=== PATIENT | female | born 1975 | race Caucasian/White ===

== ENCOUNTER 2022-12-14 11:47 | Outpatient (REF) | payer MEDICAID, SELFPAY ==
[2022-12-14 19:02] LABS: ESR 20 mm/hr (0-20); HCT 41.1 % (36.0-46.0); HGB 13.2 g/dL (11.2-15.7); MCH 28.4 pg (27.0-33.0); MCHC 32.1 % (32.0-36.0); MCV 88 fL (80-95); MPV 9.1 fL (8.0-11.0); Platelet Count 445 10^3/uL (130-400); RBC 4.65 10^6/uL (3.93-5.22); RDW 12.5 % (11.7-14.6); RDW-SD 40.3 fL; WBC 5.67 10^3/uL (4.4-10.8)
[2022-12-14 19:12] LABS: ALT 24 U/L (14-59); AST 26 U/L (15-37); Albumin 4.2 g/dL (3.4-5.0); Alkaline Phosphatase 77 U/L (46-116); Anion Gap 2.4 mmol/L (3-11); BUN 10 mg/dL (7-18); Bilirubin, Total 0.5 mg/dL (0.2-1.0); C-Reactive Protein < 0.05 mg/dL (0.0-0.3); CO2 31.6 mmol/L (21.0-32.0); CREATININE 0.8 mg/dL (0.55-1.02); Calcium 9.4 mg/dL (8.5-10.1); Chloride 99 mmol/L (98-107); Estimated GFR 90.27 (mL/min/1.73m2); Glucose 101 mg/dL (74-106); Sodium 133 mmol/L (136-145); Total Protein 7.9 g/dL (6.4-8.2)
== END 2022-12-14 11:48 | disposition home or self-care (01) ==
LOC: NCHCN 11:47
PROVIDERS: PCP Family Medicine; Visit Provider Internal Medicine
DX: M79.18 Myalgia, other site (principal); E03.9 Hypothyroidism, unspecified; G03.8 Meningitis due to other specified causes
CPT/HCPCS: 80053; 85027; 85652; 86140

== ENCOUNTER 2023-06-11 09:04 | Outpatient (REF) | payer MEDICAID, SELFPAY ==
--- NOTE | 2023-06-11 08:30 | PAPFT_PTH ---
PATIENT: Jaycee Rodarte LOC: [facility] U#:[id number] AGE/SX: 48/F ROOM: RE06/11/[address]: Teresa Johnson NP : 1975 BED: DIS: 06/11/2023 SPEC #: [id number] RECD: 06/11/23 12:50 STATUS: TIFFANY REChristine #: [id number] IVAN: 06/11/23 08:[address]: Elizabeth ANDERSON,Teresa DEPT: [facility] Cytology RECD BY: Luisa Coughlin ENTERED: 06/11/23 12:50 SP TYPE: PAPFT OT DR: Bel Carpenter APRN Tissues: 1 - CX/ENDOCX FOR PAP SMEARS Procedures: PAP THIN PREP/UVM Screening HPV DNA PROBE Comments: [id number]
== END 2023-06-11 09:05 | disposition home or self-care (01) ==
LOC: LBN 09:04
PROVIDERS: PCP Nurse Practitioner; Visit Provider Nurse Practitioner Women's Health
DX: Z12.4 Encounter for screening for malignant neoplasm of cervix (principal); Z11.51 Encounter for screening for human papillomavirus (HPV)
CPT/HCPCS: 88142; 87624

== ENCOUNTER → 2023-06-14 01:41 | Outpatient (CLI) | payer MEDICAID, SELFPAY ==
--- NOTE | 2023-06-14 11:32 | DI.MAMMO_ITS ---
Exam(s) MG MAMMO SCREENING 60 MIN DUR EXAM: MG MAMMO SCREENING 60 MIN DUR CLINICAL HISTORY: breast cancer screening,BREAST IMPLANTS,Z98.82,Z12.39. TECHNIQUE: Bilateral full field digital CC and MLO mammographic images were obtained with 3D tomosyn thesis and utilizing computer aided detection (CAD). COMPARISON: None FINDINGS: There are bilateral retropectoral saline implants. These appear intact. There are no a colitis masses nor malignant appearing microcalcification groups. Benign-appearing nodule upper-outer quadrant left breast noted which has appearance a benign intramam monserrat lymph node. There is no significant architectural distortion nor skin thickening-retraction. IMPRESSION: Benign findings. No radiographic evidence of malignancy. BI-RADS Category 2 - Benign Findings Breast Density - Category C - Heterogeneously dense Breast density Category C or D implies that the patient has dense breast tissue. Dense breast tissue can make it harder to find cancer on a mammogram. Dense breast tissue is also associated with an incr eased risk of breast cancer. This information about the result of the mammogram report was provided to the patient to raise their awareness. Use this report when you speak with the patient about their risks for breast cancer, which includes their family history. At that time, you may recommend additional screening tests (Ultrasoun d or MRI) as these tests may add significant information. A negative radiographic report should not delay biopsy if a dominant or clinically suspicious mass is present. Up to ten percent of cancers are not identified on mammography. A negative report may reinforce clinical impression. Adenosis and dense breasts may obscure an underlying neoplasm. False positive reports average 6 to 10%. Patient will receive a letter notifying them of these results.
== END ==
PROVIDERS: PCP Nurse Practitioner; Visit Provider Nurse Practitioner
DX: Z12.31 Encounter for screening mammogram for malignant neoplasm of breast (principal); Z98.82 Breast implant status
CPT/HCPCS: 77063; 77067

== ENCOUNTER 2023-07-19 17:47 | Outpatient (REF) | payer MEDICAID, SELFPAY ==
[2023-07-19 20:03] LABS: FREE T4 1.27 ng/dL (0.76-1.46)
== END 2023-07-19 17:48 | disposition home or self-care (01) ==
LOC: NCHCN 17:47
PROVIDERS: PCP Nurse Practitioner; Visit Provider Internal Medicine
DX: E03.9 Hypothyroidism, unspecified (principal)
CPT/HCPCS: 84439; 84443

== ENCOUNTER → 2024-01-07 03:27 | Outpatient (CLI) | payer MEDICAID, SELFPAY ==
--- NOTE | 2024-01-07 08:30 | DI.US_ITS ---
Exam(s) US THYROID EXAM: US THYROID CLINICAL HISTORY: h/o goiter,vikas's thyroiditis,E06.3. TECHNIQUE: Ultrasound thyroid performed using standard protocol. COMPARISON: US ECHO SOFT TISSUE NECK from 11/04/2010 FINDINGS: The previously present bilateral colloid cysts seen in 2010 are no longer seen. On today's study both thyroid lobes exhibit normal size and homogeneous echotexture with the exceptio n of the following solitary focal findings in each lobe: RIGHT THYROID LOBE: Measures 1.4 cm AP x 1.4 cm wide x 4.1 cm craniocaudal There is a mid level laterally located nodule with details as follows.... Size: Measures 0.8 x 0.6 x 0.3 cm Composition: Solid-2 points Echogenicity: Mildly hypoechoic-2 points Shape: Wider than taller in the transverse plane-0 points Margin: Smooth- 0 points Echogenic Foci: Appears to contain punctate echogenic foci-3 points Total Points for this nodule: 7 ACR Ti-Rads Category: TR5 Although this is a TR 5 level nodule, it does not require ultrasound-guided FNA at this time as it me asures less than 1 cm. ISTHMUS: Normal thickness. There are no nodules in the isthmus. LEFT THYROID LOBE: Measures 0.8 cm AP x 1.5 wide x 3.8 cm craniocaudal There is a solitary small nodule towards the inferior aspect of the left lobe. Details of this nodule are as follows... Size: Measures 0.5 x 0.3 x 0.3 cm Composition: Solid-2 points Echogenicity: Hypoechoic-2 points Shape: Wider than taller in the transverse plane-0 points Margin: Smooth-0 points Echogenic Foci: None-0 points Total points for this nodule: 4 ACR Ti-Rads Category: 4 This TR 4 level nodule does not require ultrasound-guided FNA as it measures less than 1.5 cm LYMPH NODES: Few benign lymph nodes are noted in the right-side of the neck. IMPRESSION: 1. There is a single solid nodule in each lobe as described individually above 2. Both nodules can be followed with repeat ultrasound exam in 1 year 3. There is no significant lymphadenopathy. DATA REPOSITORY:
== END ==
PROVIDERS: PCP Family Medicine; Visit Provider Family Medicine
DX: E06.3 Autoimmune thyroiditis (principal); E04.2 Nontoxic multinodular goiter
CPT/HCPCS: 76536

== ENCOUNTER 2024-01-09 05:08 | Outpatient (CLI) | payer MEDICAID, SELFPAY ==
[2024-01-09 11:21] LABS: Abs Immature Grans 0.01 10^3/uL (0.0-0.06); Absolute Basophil Count 0.04 10^3/uL (0.0-0.2); Absolute Eosinophil Count 0.07 10^3/uL (0.0-0.7); Absolute Monocyte Count 0.33 10^3/uL (0.1-0.8); Absolute Neutrophil Count 1.84 10^3/uL (1.2-6.7); Basophils % 0.8; ESR 8 mm/hr (0-20); Eosinophils % 1.5; HCT 40.1 % (36.0-46.0); HGB 12.8 g/dL (11.2-15.7); Immature Grans % 0.2; Lymphocytes % 52.2; MCH 29.4 pg (27.0-33.0); MCHC 31.9 % (32.0-36.0); MCV 92 fL (80-95); MPV 8.5 fL (8.0-11.0); Monocytes % 6.9; Neutrophils % 38.4; Platelet Count 397 10^3/uL (130-400); RBC 4.36 10^6/uL (3.93-5.22); RDW 12.2 % (11.7-14.6); RDW-SD 41.9 fL; WBC 4.79 10^3/uL (4.4-10.8)
[2024-01-09 12:02] LABS: ALT 51 U/L (14-59); AST 33 U/L (15-37); Albumin 3.8 g/dL (3.4-5.0); Alkaline Phosphatase 72 U/L (46-116); Anion Gap 7.1 mmol/L (3-11); BUN 11 mg/dL (7-18); Bilirubin, Total 0.4 mg/dL (0.2-1.0); CO2 30.9 mmol/L (21.0-32.0); CREATININE 0.8 mg/dL (0.55-1.02); Calcium 8.8 mg/dL (8.5-10.1); Chloride 104 mmol/L (98-107); Estimated GFR 89.71 (mL/min/1.73m2); Glucose 106 mg/dL (74-106); Potassium 4.3 mmol/L (3.5-5.1); Sodium 142 mmol/L (136-145); TSH (W/Ref FT4) 0.75 uIU/mL (0.36-3.74); Total Protein 7.4 g/dL (6.4-8.2)
[2024-01-09 18:14] LABS: FSH 81.4 mIU/mL (See Note)
== END 2024-01-09 05:09 | disposition home or self-care (01) ==
LOC: LBO 05:08
PROVIDERS: PCP Family Medicine; Visit Provider Family Medicine
DX: R23.2 Flushing (principal); E03.9 Hypothyroidism, unspecified; E06.3 Autoimmune thyroiditis; Z00.00 Encounter for general adult medical examination without abnormal findings
CPT/HCPCS: 36415; 80053; 85652; 83001; 84443; 85025

== ENCOUNTER 2024-06-16 02:22 | Outpatient (CLI) | payer MEDICAID, SELFPAY ==
--- NOTE | 2024-06-16 | DI.MAMMO_ITS ---
Exam(s) MG MAMMO SCREENING 60 MIN DUR EXAM: MG MAMMO SCREENING 60 MIN DUR CLINICAL HISTORY: SCREENING, Z12.31, HAS IMPLANTS. TECHNIQUE: Bilateral full field digital CC and MLO mammographic images were obtained with 3D tomosyn thesis and utilizing computer aided detection (CAD). COMPARISON: Prior mammograms were reviewed. FINDINGS: Bilateral retropectoral saline implants are again noted and appear unchanged. There are no new spiculated masses nor malignant appearing microcalcification groups. There is no significant architectural distortion nor skin thickening-retraction. IMPRESSION: No radiographic evidence of malignancy. BI-RADS Category 1 - Negative Breast Density - Category C - Heterogeneously dense Breast density Category C or D implies that the patient has dense breast tissue. Dense breast tissue can make it harder to find cancer on a mammogram. Dense breast tissue is also associated with an incr eased risk of breast cancer. This information about the result of the mammogram report was provided to the patient to raise their awareness. Use this report when you speak with the patient about their risks for breast cancer, which includes their family history. At that time, you may recommend additional screening tests (Ultrasoun d or MRI) as these tests may add significant information. A negative radiographic report should not delay biopsy if a dominant or clinically suspicious mass is present. Up to ten percent of cancers are not identified on mammography. A negative report may reinforce clinical impression. Adenosis and dense breasts may obscure an underlying neoplasm. False positive reports average 6 to 10%. Patient will receive a letter notifying them of these results.
== END 2024-06-16 02:42 ==
LOC: DI 02:22
PROVIDERS: PCP Neuromusculoskeletal Medicine & OMM; Visit Provider Advanced Practice Midwife
DX: Z12.31 Encounter for screening mammogram for malignant neoplasm of breast (principal)
CPT/HCPCS: 77063; 77067

== ENCOUNTER 2024-08-04 18:17 | Emergency (ER) | payer MEDICAID, SELFPAY ==
[2024-08-04 18:20] VITALS: BP 159/79; PULSE 94; RESP 15; TEMP 36.6; O2SAT 97
[2024-08-04] MEDS: Tetracaine 0.5% 4 ML BTL (19:09)
[2024-08-04] MEDS: Fluorescein STRIPS 100/BOX 1 MG (19:09)
[2024-08-04] MEDS: Erythromycin Ophth Oint 3.5 GM TUBE OD (20:34)
[2024-08-04 20:36] VITALS: BP 148/76; PULSE 88; RESP 14; O2SAT 98
--- NOTE | 2024-08-04 20:42 | ED.GENADUL_ITS ---
Discharge Plan Disposition Patient Disposition: Home Condition: Stable Discharge Details Clinical Impression: Foreign body sensation, right eye Primary Care Provider: Janusz Harrison ED Provider: Margaret Gallardo Home Meds and New Rx's Prescriptions: New erythromycin 5 mg/gram (0.5 %) ointment 0.5 inch ophthalmic (eye) QID Qty: 3.5 0RF No Action amitriptyline 25 mg tablet 25 mg PO DAILY levothyroxine [Synthroid] 50 mcg tablet 50 mcg PO DAILY naloxone [Narcan] 4 mg/actuation spray,non-aerosol 4 mg intranasal Q2M PRN Rx Instructions: spray 1 dose into ONE nostril; alternate nostrils w each dose until help arrives lorazepam 1 mg tablet 1 mg PO DAILY PRN (Reason: anxiety) Qty: 28 0RF Emgality Pen 120 mg/mL pen injector 120 mg subcut QMONTH Qty: 1 5RF Veozah 45 mg tablet 45 mg PO DAILY Qty: 30 3RF Restasis MultiDose 0.05 % drops 1 drp ophthalmic (eye) Q12H bisacodyl 5 mg tablet,delayed release (DR/EC) 5 mg PO ONCE Qty: 8 0RF Rx Instructions: Per Colonoscopy bowel prep instructions polyethylene glycol 3350 17 gram/dose powder 238 g PO ONCE Qty: 238 0RF Rx Instructions: For Colonoscopy bowel prep, as directed by office baclofen 10 mg tablet 10 mg PO TID Qty: 90 0RF buprenorphine [Butrans] 20 mcg/hour patch weekly 1 patch transdermal QWEEK Qty: 4 0RF buprenorphine HCl [Belbuca] 450 mcg film 450 mcg buccal Q12H Qty: 56 0RF oxycodone 5 mg tablet See Rx Instructions .ROUTE .COMPLEX MDD 25mg Qty: 120 0RF Rx Instructions: 5-10mg every 6 hours as needed for pain, TDD 25mg; Discharge Instructions Instructions: Corneal Abrasion ED Additional Instructions: You were seen in the emergency department today for evaluation of a foreign body sensation in your eye. In our department a full physical examination performed, had no evidence of corneal ulceration or large abrasion, and did not have any visualized foreign body on today's exam. I have sent you home with erythromycin ointment to be used 4 times per day, and you need to follow-up with the eye doctors in clinic tomorrow or the next day to discuss reevaluation and any ongoing symptoms. Thank you for allowing us to be part of your care. HPI General Mode of arrival: ambulatory . Date/Time Provider Initiated Documentation: 08/04/24 18:29 . Limitations to Documentation: no limitations . Information obtained by: patient and old records reviewed . HPI Narrative: HPI: This is a 49-year-old female patient presenting for evaluation of right eye pain. States that she was looking up at a ceiling tile that dropped some dust into her eye, states that she has rinsed her eye out and has been attempting to remove the foreign body without success. She is having ongoing foreign body sensation and pain. She does not wear contact lenses, did not sustain any other injury. The patient states that it hurts to open her eye, she feels that her vision is blurry. Attempted to contact her eye doctor without success given the holiday. Exam: Gen: Awake and alert, in no apparent distress HEENT: Non-icteric sclera, right sided conjunctiva is not significantly injected, the patient does have abraded skin underneath the right eye consistent with eye rubbing. Pupils equal and reactive, no foreign bodies visualized. Fluorescein staining without obvious corneal abrasion or ulcerations. No other fluorescein uptake appreciated. EOMs full. Lids able to be everted only partially, no visualized foreign body under the lid on this limited examination. Neck: Supple Lungs: No apparent respiratory distress, normal respiratory effort. CV: Appears well perfused Abdomen: Non-distended MSK: Moves 4 extremities without apparent limitation in ROM Skin: Visualized skin without rashes, cyanosis. Neuro: Normal Gait, no obvious focal deficits or facial asymmetry. Speaks in full, clear sentences. Psych: Appropriate for situation. MDM: This is a 49-year-old female patient presenting for evaluation of foreign body sensation in the eye. Differential includes but is not limited to retained foreign body, corneal abrasion. The patient did not have any chemical exposure to suggest corneal zuniga, was able to rinse the eye effectively. The patient is without vesicular rash on her face, nor dendritic uptake to suggest herpes keratitis. No diffuse fluorescein staining to suggest UV keratitis. No spe cific trauma to increase my concern for traumatic iritis or other severe ocular abnormality. No evidence of episcleritis or scleritis, history with a discrete event for foreign body in the eye occurring makes me less concerned for uveitis, glaucoma, optic neuritis, and other severe ocular derangements. ED Course: My examination performed as noted above, and I did provide the patient with erythromycin despite my relatively reassuring examination. I recommended that she follow-up with the eye doctor in the morning for reevaluation and ongoing workup and management of any residual symptoms. At this time, the patient has had a full medical evaluation and is safe for discharge to home. They are hemodynamically stable, ambulatory, and tolerating PO. They are understanding of the follow-up plan and return precautions. They left our facility without incident. Margaret Gallardo MD Related Data Home Medications ?Medication ?Instructions ?Recorded ?Confirmed amitriptyline 25 mg tablet 25 mg PO DAILY 04/30/23 08/04/24 levothyroxine 50 mcg tablet 50 mcg PO DAILY 04/30/23 08/04/24 (Synthroid) naloxone 4 mg/actuation nasal 4 mg intranasal Q2M PRN 04/30/23 08/04/24 spray (Narcan) galcanezumab-gnlm 120 mg/mL 120 mg subcut QMONTH #1 mL 10/26/23 08/04/24 subcutaneous pen injector (Emgality Pen) lorazepam 1 mg tablet 1 mg PO DAILY PRN anxiety #28 tabs 10/26/23 08/04/24 bisacodyl 5 mg tablet,delayed 5 mg PO ONCE Colonoscopy Bowel 12/31/23 08/04/24 release Prep #8 tabs polyethylene glycol 3350 17 238 g PO ONCE #238 grams 12/31/23 08/04/24 gram/dose oral powder baclofen 10 mg tablet 10 mg PO TID #90 tabs 01/21/24 08/04/24 buprenorphine 20 mcg/hour weekly 1 patch transdermal QWEEK #4 ea 01/23/24 08/04/24 transdermal patch (Butrans) buprenorphine HCl 450 mcg buccal 450 mcg buccal Q12H #56 ea 01/23/24 08/04/24 film (Belbuca) oxycodone 5 mg tablet See Rx Instructions .Route 01/23/24 08/04/24 .COMPLEX #120 tabs fezolinetant 45 mg tablet (Veozah) 45 mg PO DAILY #30 tabs 01/25/24 08/04/24 cyclosporine 0.05 % eye drops 1 drp ophthalmic (eye) Q12H 03/13/24 08/04/24 (Restasis MultiDose) erythromycin 5 mg/gram (0.5 %) eye 0.5 inch ophthalmic (eye) QID #3.5 08/04/24 ointment grams Previous Rx's ?Medication ?Instructions ?Recorded galcanezumab-gnlm 120 mg/mL 120 mg subcut QMONTH #1 mL 10/26/23 subcutaneous pen injector (Emgality Pen) lorazepam 1 mg tablet 1 mg PO DAILY PRN anxiety #28 tabs 10/26/23 bisacodyl 5 mg tablet,delayed 5 mg PO ONCE Colonoscopy Bowel 12/31/23 release Prep #8 tabs polyethylene glycol 3350 17 238 g PO ONCE #238 grams 12/31/23 gram/dose oral powder baclofen 10 mg tablet 10 mg PO TID #90 tabs 01/21/24 buprenorphine 20 mcg/hour weekly 1 patch transdermal QWEEK #4 ea 01/23/24 transdermal patch (Butrans) buprenorphine HCl 450 mcg buccal 450 mcg buccal Q12H #56 ea 01/23/24 film (Belbuca) oxycodone 5 mg tablet See Rx Instructions .Route 01/23/24 .COMPLEX #120 tabs fezolinetant 45 mg tablet (Veozah) 45 mg PO DAILY #30 tabs 01/25/24 erythromycin 5 mg/gram (0.5 %) eye 0.5 inch ophthalmic (eye) QID #3.5 08/04/24 ointment grams Allergies Allergy/AdvReac Type Severity Reaction Status Date / Time meloxicam (From Mobic) AdvReac Intermediate hives, Verified 08/04/24 19:07 nose bleeds Casein Allergy Intermediate hives Uncoded 08/04/24 19:07 General Stated Complaint: EyeProblem HEATHER: 3 Course Vital Signs Vital signs: Vital Signs Temperature 36.6 C 08/04/24 18:20 Pulse 94 H 08/04/24 18:20 Respiratory Rate 15 08/04/24 18:20 Blood Pressure 159/79 H 08/04/24 18:20 Pulse Oximetry 97 08/04/24 18:20 Temperature 36.6 C 08/04/24 18:20 Pulse 88 08/04/24 20:36 Respiratory Rate 14 08/04/24 20:36 Respiratory Effort Normal, Non-Labored 08/04/24 19:11 Blood Pressure 148/76 H 08/04/24 20:36 Blood Pressure Position Sitting 08/04/24 18:20 Pulse Oximetry 98 08/04/24 20:36 Oxygen Delivery Method Room Air 08/04/24 18:20 Oxygen Flow Rate 0 08/04/24 18:20 Medical Decision Making Quality:SDOH Health Related Social Needs: No Data to Display PFSH All Active Problems (Updated 08/04/24 @ 20:43 by Margaret Gallardo MD) Foreign body sensation, right eye (Acute) Marijuana smoker, continuous (Acute) Buprenorphine dependence (Acute) Chronic prescription benzodiazepine use (Acute) Spinal cord stimulator status (Acute) Hot flashes (Acute) Sudden severe onset. 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 Sjogren syndrome, unspecified (Acute) Medical History (Updated 08/04/24 @ 20:43 by Margaret Gallardo MD) History of chronic pain Keratoconjunctivitis 06/08/23 [facility] Bilateral dry eyes 06/08/23 [facility] Surgical History (Updated 06/11/23 @ 09:02 by Teresa Johnson NP) H/O breast augmentation H/O laminectomy (~2012) History of lumbar fusion (~2013) Cage pedicle screws H/O laminectomy (~2011) dura puncture occurred during procedure Family History (Updated 09/14/23 @ 09:54 by Belem Correa) Father Dementia Mother No problems noted. 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 Pets and animals: Yes Pets and animals: cat(s) Sexually active: Yes Do you think of yourself as: straight/heterosexual Current gender identity: female What is your relationship status?: living with partner How often do you talk on the phone with friends or family?: three or more times per week How often do you get together with friends or relatives?: twice per week Do you belong to any clubs or organized social groups?: no Panel score (0-1 are the most socially isolated patients): 2 What type of physical activity do you participate in: none Marely/Tenriism: None Special marely needs: No Agree to transfusion: Yes Seatbelt use: always Helmet use: Yes Drive intox or ride w/intox service car driver: No Working smoke detector in home: Yes Carbon monox detector in home: Yes Firearms in home: No Do you feel safe at home: Yes Do you feel safe in your relationship?: Yes Victim of physical abuse: No Victim of emotional abuse: No Victim of sexual abuse: No Would you like helpful sources: No
== END 2024-08-04 20:57 | disposition home or self-care (01) ==
PROVIDERS: Emergency Provider Emergency Medicine; PCP Neuromusculoskeletal Medicine & OMM
DX: H57.8A1 Foreign body sensation, right eye (principal)
CPT/HCPCS: 99283

== ENCOUNTER 2025-06-24 15:17 | Outpatient (REF) | payer MEDICAID, SELFPAY ==
[2025-06-24 15:55] LABS: Abs Immature Grans 0.01 10^3/uL (0.0-0.06); HCT 41.8 % (36.0-46.0); HGB 13.6 g/dL (11.2-15.7); Immature Grans % 0.1 %; MCH 29.1 pg (27.0-33.0); MCHC 32.5 % (32.0-36.0); MCV 90 fL (80-95); MPV 9.3 fL (8.0-11.0); Platelet Count 539 10^3/uL (130-400); RBC 4.67 10^6/uL (3.93-5.22); RDW 12.9 % (11.7-14.6); RDW-SD 42.5 fL; WBC 7.43 10^3/uL (4.4-10.8)
[2025-06-24 16:07] LABS: ALT 38 U/L (14-59); AST 19 U/L (15-37); Albumin 4.0 g/dL (3.4-5.0); Alkaline Phosphatase 51 U/L (46-116); Anion Gap 4.7 mmol/L (3-11); BUN 11 mg/dL (7-18); Bilirubin, Total 1.0 mg/dL (0.2-1.0); CO2 29.3 mmol/L (21.0-32.0); Calcium 9.4 mg/dL (8.5-10.1); Chloride 101 mmol/L (98-107); Estimated GFR 88.60 (mL/min/1.73m2); Glucose 91 mg/dL (74-106); Potassium 4.6 mmol/L (3.5-5.1); Sodium 135 mmol/L (136-145); Total Protein 7.3 g/dL (6.4-8.2)
[2025-06-25 10:29] LABS: Lyme Ab w Rflx to Lyme Confirm Negative (Negative)
[2025-06-26 20:48] LABS: B. miyamotoi PCR Negative (Negative); Babesia divergens/MO-1 Negative (Negative); Ehrlichia muris eauclairensis Negative (Negative)
== END 2025-06-24 15:18 | disposition home or self-care (01) ==
LOC: LBN 15:17
PROVIDERS: PCP Neuromusculoskeletal Medicine & OMM; Visit Provider Physician Assistant Medical
DX: R31.9 Hematuria, unspecified (principal)
CPT/HCPCS: 80053; 87798; 81015; 85025; 86618; 87086

== ENCOUNTER 2025-06-24 16:04 | Emergency (ER) | payer MEDICAID, SELFPAY ==
[2025-06-24 16:06] VITALS: BP 153/91; PULSE 89; RESP 15; TEMP 36.5; O2SAT 98
--- NOTE | 2025-06-24 16:15 | W.ED.GENAD ---
Discharge Plan Disposition Patient Disposition: Home Discharge Details Clinical Impression: Hematuria, UTI (urinary tract infection) Primary Care Provider: Janusz Harrison ED Provider: José Nevarez Home Meds and New Rx's Prescriptions: New nitrofurantoin monohyd/m-cryst [Macrobid] 100 mg capsule 100 mg PO BID Qty: 10 0RF Rx Instructions: must administer with a meal/food phenazopyridine [Pyridium] 100 mg tablet 100 mg PO TID PRNQty: 6 0RF No Action levothyroxine [Synthroid] 50 mcg tablet 50 mcg PO DAILY lorazepam 1 mg tablet 1 mg PO DAILY PRN (Reason: anxiety) Qty: 28 0RF Emgality Pen 120 mg/mL pen injector 120 mg subcut QMONTH Qty: 1 5RF Restasis MultiDose 0.05 % drops 1 drp ophthalmic (eye) Q12H buprenorphine [Butrans] 20 mcg/hour patch weekly 1 patch transdermal QWEEK Qty: 4 0RF buprenorphine HCl [Belbuca] 450 mcg film 450 mcg buccal Q12H Qty: 56 0RF cephalexin 500 mg capsule 500 mg PO BID oxycodone 5 mg tablet 10 mg PO TID MDD 25mg PRN Rx Instructions: 5-10mg every 6 hours as needed for pain, TDD 25mg; Discharge Instructions Instructions: Urinary Tract Infection, Adult ED, Blood in Urine (Hematuria), Adult ED Additional Instructions: Please follow-up with your primary care provider regarding your visit to the emergency department today. Be sure to discuss results of all test performed here today to include radiology, and laboratory testing as well as results for any pending cultures. Should your symptoms worsen, or if you develop new concerning symptoms, please return immediately emergency department for further evaluation. HPI General Date/Time Provider Initiated Documentation: 06/24/25 16:15. HPI Narrative: MDM/Narrative: Initial Assessment: 50-year-old female with urinary complaints, including incontinence, hematuria, nausea, vomiting, diarrhea, and back pain after consuming a chemically-tasting edible. Differential Diagnosis: - Urinary tract infection: Lower back pain, incontinence, increased urinary frequency, hematuria. Urine test for infection. - Food poisoning: Nausea, vomiting, diarrhea, blood in stool. Blood work for blood loss and inflammation. - Exposure to foreign material: Disorientation, fatigue, chemical taste. Urine drug screen for substances. - Progression of arachnoiditis: Symptomatic management ED Course: - Urine test for infection. - Blood work for inflammatory markers and blood loss. - Urine drug screen for benzodiazepines, narcotics, amphetamines, cocaine, and other substances. - CT scan to rule out abscess and identify inflammation. 190 On reassessment, patient is resting comfortably. She notes significant improvement of her symptoms. Results were shared with and discussed with the patient. Blood work shows no leukocytosis, anemia, or acute organ dysfunction. CT scan shows no acute findings. Urinalysis shows blood in the urine. Given left flank pain with associated symptoms of malaise, suprapubic pain, and urinary incontinence, clinically patient has a strong story for UTI. As such we will treat her with Macrobid, and Pyridium. Instructed to follow-up primary care. Disposition: Discharge home. Return precautions for worsening symptoms or new concerns. Follow-Up: Primary care physician for further evaluation and management. Patient Education: Discussed potential causes of symptoms, importance of follow-up, and return precautions. This document was created with assistance from [employer]. The patient consented to its use. Disposition: Discharge HPI: The patient is a 50-year-old female with a known diagnosis of arachnoiditis, presenting with urinary complaints. On Sunday, June 15, 2025, the patient inadvertently ingested a cookie with a chemical taste. The following morning, she experienced disorientation, fatigue, difficulty rising from bed, urinary incontinence, nausea, vomiting, hematuria, and diarrhea. These symptoms persisted for 3-4 days, accompanied by headache, cognitive impairment, exacerbation of back pain, and continued hematuria and diarrhea. Although the vomiting has slightly improved, she remains unable to tolerate oral intake except for Gatorade. The vomitus contains gastric bile but no blood. An urgent care evaluation raised concerns about a potential renal issue and recommended an emergency department visit. The patient has no history of urinary tract infections or prior bladder control issues. Initial balance disturbances have resolved, and she is now ambulating normally. There is no history of recent trauma or falls. She has a history of gastrointestinal bleeding associated with Mobic use. The patient has a spinal stimulator implanted in 2019, which is currently non-functional. 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 Her surgical history includes two laminectomies, two discectomies, interbody fusion, and two spinal stimulators at the L5-S1 level. PAST SURGICAL HISTORY: Two laminectomies, two discectomies, interbody fusion, and two spinal stimulators at L5-S1. ROS: Negative besides as mentioned above Exam: Vital signs: Reviewed. General Appearance: Fatigued and disoriented. HEENT: NCAT, EOMI, not icteric. External ears normal. No rhinorrhea. Moist mucous membranes. Neck: Supple, full range of motion, no observable masses, No meningeal sign. Respiratory: No Respiratory distress. No tachypnea. Cardiovascular: RRR, no edema. Gastrointestinal: Bilateral flank tenderness. Abdomen is soft nontender Back: No midline tenderness to palpation or palpable step-offs of the C/T/L spine. Skin: Warm and dry, no rash. Neurological: Normal Gait, Grossly intact. Psychiatric: Appropriate for situation. Labs: Laboratory Tests Range/Units 06/24/25 06/24/25 17:10 17:40 WBC (4.4-10.8) 10^3/uL 7.96 RBC (3.93-5.22) 10^6/uL 4.87 Hgb (11.2-15.7) g/dL 14.3 Hct (36.0-46.0) % 43.2 MCV (80-95) fL 89 MCH (27.0-33.0) pg 29.4 MCHC (32.0-36.0) % 33.1 RDW (11.7-14.6) % 12.7 Plt Count (130-400) 10^3/uL 530 H MPV (8.0-11.0) fL 8.7 Immature Gran % % 0.3 Neutrophils % % 43.1 Lymphocytes % % 50.0 Monocytes % % 5.0 Eosinophils % % 1.0 Basophils % % 0.6 Nucleated RBC % (0.0-0.3) % 0.0 Absolute Neutrophils (1.2-6.7) 10^3/uL 3.43 Absolute Lymphocytes (1.2-3.4) 10^3/uL 3.98 H Absolute Monocytes (0.1-0.8) 10^3/uL 0.40 Absolute Eosinophils (0.0-0.7) 10^3/uL 0.08 Absolute Basophils (0.0-0.2) 10^3/uL 0.05 PT (9.1-11.1) sec 9.8 INR (0.9-1.1) 1.0 APTT (20.6-30.2) sec 25.4 Sodium (136-145) mmol/L 135 L Potassium (3.5-5.1) mmol/L 3.6 D Chloride (98-107) mmol/L 99 Carbon Dioxide (21.0-32.0) mmol/L 29.0 Anion Gap (3-11) mmol/L 7.0 BUN (7-18) mg/dL 11 Creatinine (0.55-1.02) mg/dL 0.9 Est GFR (CKD-EPI 2020) (mL/min/1.73m2) 76.92 Glucose (74-106) mg/dL 91 Calcium (8.5-10.1) mg/dL 8.8 Total Bilirubin (0.2-1.0) mg/dL 0.8 AST (15-37) U/L 19 ALT (14-59) U/L 40 Alkaline Phosphatase (46-116) U/L 60 Total Protein (6.4-8.2) g/dL 8.1 Albumin (3.4-5.0) g/dL 4.3 Urine Color (Yellow) Dark Yellow Urine Clarity (Clear) Sl Cloudy Urine pH (5-8) 6.0 Ur Specific Ceres (1.005-1.025) >= 1.030 H Urine Protein (Neg-Trace) mg/dL 30 H Urine Ketones (Negative) mg/dL Trace H Urine Blood (Negative) Large H Urine Nitrite (Negative) Negative Urine Bilirubin (Negative) Small H Urine Urobilinogen (Up to 0.2) mg/dL 1.0 H Ur Leukocyte Esterase (Negative) Negative Urine RBC (0-2) HPF >50 H Urine WBC (0-5) HPF 10-20 H Ur Epithelial Cells (Negative) HPF Moderate Urine Crystals (Negative) HPF Negative Urine Bacteria (Negative) HPF Many Urine Casts (Negative) LPF Negative Urine Mucus (Negative) Negative Ur Culture Indicated? No/Sq. Contamination Urine Glucose (Negative) mg/dL Negative Urine Opiates Screen (Negative) Negative Urine Methadone Screen (Negative) Negative Ur Barbiturates Screen (Negative) Negative Ur Tricyclics Screen (Negative) Negative Ur Amphetamines Screen (Negative) Negative U Benzodiazepines Scrn (Negative) Negative Urine Cocaine Screen (Negative) Negative Ur THC Screen (Negative) Positive A ABO/Rh O Positive Antibody Screen NEGATIVE Radiology: Exam(s) CT ABDOMEN PELVIS W EXAM: CT ABDOMEN PELVIS W CLINICAL HISTORY: N/v/d left flank pain. TECHNIQUE: Imaging Protocol: Axial computed tomography images with coronal and sagittal reformatted images were created and reviewed CONTRAST MATERIAL: Intravenous: Omnipaque 350 Contrast volume:75 ml Oral: no COMPARISON: No exams were available for comparison FINDINGS: ABDOMEN and PELVIS: Lung Bases: No acute findings. Liver: Normal density. No suspicious mass. Gallbladder and biliary tract: Cholecystectomy. No biliary dilation. Pancreas: Normal density. No abnormal calcifications or inflammatory process. No evidence of mass. Spleen: Normal. Kidneys: Normal size, contour and axis. Symmetric perfusion. No radiodense stones. No obstructive uropathy. No suspicious masses seen. Adrenal glands: No masses seen. Vasculature: Abdominal aorta non-dilated. Soft tissues: Spinal stimulator device in left posterior soft tissues.. Breast implants. Bladder: No gross wall thickening. No calculi.No focal mass. Bowel: The stomach is empty. No obstruction. No bowel wall thickening. No air-fluid levels. Normal quantity of stool. Appendix normal. Peritoneal cavity: No ascites. No focal collection. No mesenteric inflammatory response. No free air. Bones: Hardware at the lumbosacral junction. Reproductive organs: Unremarkable. Lymph nodes: No pathologically enlarged lymph nodes. IMPRESSION:: No acute abnormality in the abdomen or pelvis. RADIATION DOSE DELIVERED: Total DLP DATA REPOSITORY: All CT scans at this facility are submitted to the National Radiology Data Registry (NRDR) Dose Index Registry (DIR) with the [employer] (ACR). RADIATION OPTIMIZATION: All CT scans at this facility use at least one of these dose optimization techniques: automated exposure control; mA and/or kV adjustment per patient size (includes targeted exams where dose is matched to clinical indication); or iterative reconstruction. Related Data Home Medications ?Medication ?Instructions ?Recorded ?Confirmed levothyroxine 50 mcg tablet 50 mcg PO DAILY 04/30/23 06/24/25 (Synthroid) galcanezumab-gnlm 120 mg/mL 120 mg subcut QMONTH #1 mL 10/26/23 06/24/25 subcutaneous pen injector (Emgality Pen) lorazepam 1 mg tablet 1 mg PO DAILY PRN anxiety #28 tabs 10/26/23 06/24/25 buprenorphine 20 mcg/hour weekly 1 patch transdermal QWEEK #4 ea 01/23/24 06/24/25 transdermal patch (Butrans) buprenorphine HCl 450 mcg buccal 450 mcg buccal Q12H #56 ea 01/23/24 06/24/25 film (Belbuca) cyclosporine 0.05 % eye drops 1 drp ophthalmic (eye) Q12H 03/13/24 06/24/25 (Restasis MultiDose) cephalexin 500 mg capsule 500 mg PO BID 06/24/25 06/24/25 nitrofurantoin 100 mg PO BID #10 caps 06/24/25 monohydrate/macrocrystals 100 mg capsule (Macrobid) oxycodone 5 mg tablet 10 mg PO TID PRN 06/24/25 06/24/25 phenazopyridine 100 mg tablet 100 mg PO TID PRN 6 doses #6 tabs 06/24/25 (Pyridium) Previous Rx's ?Medication ?Instructions ?Recorded galcanezumab-gnlm 120 mg/mL 120 mg subcut QMONTH #1 mL 10/26/23 subcutaneous pen injector (Emgality Pen) lorazepam 1 mg tablet 1 mg PO DAILY PRN anxiety #28 tabs 10/26/23 buprenorphine 20 mcg/hour weekly 1 patch transdermal QWEEK #4 ea 01/23/24 transdermal patch (Butrans) buprenorphine HCl 450 mcg buccal 450 mcg buccal Q12H #56 ea 01/23/24 film (Belbuca) nitrofurantoin 100 mg PO BID #10 caps 06/24/25 monohydrate/macrocrystals 100 mg capsule (Macrobid) phenazopyridine 100 mg tablet 100 mg PO TID PRN 6 doses #6 tabs 06/24/25 (Pyridium) Allergies Allergy/AdvReac Type Severity Reaction Status Date / Time meloxicam (From Mobic) AdvReac Intermediate hives, Verified 06/24/25 16:10 nose bleeds Casein Allergy Intermediate hives Uncoded 06/24/25 16:10 General Stated Complaint: GI Bleed HEATHER: 3 Course Vital Signs Vital signs: Vital Signs Temperature 36.5 C 06/24/25 16:06 Pulse 89 06/24/25 16:06 Respiratory Rate 15 06/24/25 16:06 Blood Pressure 153/91 H 06/24/25 16:06 Pulse Oximetry 98 06/24/25 16:06 Temperature 36.5 C 06/24/25 16:06 Temperature Source Oral 06/24/25 16:06 Pulse 89 06/24/25 16:06 Respiratory Rate 15 06/24/25 16:06 Blood Pressure 153/91 H 06/24/25 16:06 Blood Pressure Position Sitting 06/24/25 16:06 Pulse Oximetry 98 06/24/25 16:06 Oxygen Delivery Method Room Air 06/24/25 16:06 Oxygen Flow Rate 0 06/24/25 16:06 Pain Level 6 06/24/25 16:06 PFSH All Active Problems (Updated 06/24/25 @ 19:08 by José Nevarez MD) UTI (urinary tract infection) (Acute) Hematuria (Acute) Marijuana smoker, continuous (Acute) Buprenorphine dependence (Acute) Chronic prescription benzodiazepine use (Acute) Spinal cord stimulator status (Acute) Hot flashes (Acute) Sudden severe onset. 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 Sjogren syndrome, unspecified (Acute) Medical History (Updated 06/24/25 @ 19:08 by José Nevarez MD) History of chronic pain Keratoconjunctivitis 06/08/23 [facility] Bilateral dry eyes 06/08/23 [facility] Surgical History (Updated 06/11/23 @ 09:02 by Teresa Johnson NP) H/O breast augmentation H/O laminectomy (~2012) History of lumbar fusion (~2013) Cage pedicle screws H/O laminectomy (~2011) dura puncture occurred during procedure Family History (Updated 09/14/23 @ 09:54 by Belem Correa) Father Dementia Mother No problems noted. 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 Pets and animals: Yes Pets and animals: cat(s) Sexually active: Yes Do you think of yourself as: straight/heterosexual Current gender identity: female What is your relationship status?: living with partner How often do you talk on the phone with friends or family?: three or more times per week How often do you get together with friends or relatives?: twice per week Do you belong to any clubs or organized social groups?: no Panel score (0-1 are the most socially isolated patients): 2 What type of physical activity do you participate in: none Marely/Faith: None Special marely needs: No Agree to transfusion: Yes Seatbelt use: always Helmet use: Yes Drive intox or ride w/intox water tanker driver: No Working smoke detector in home: Yes Carbon monox detector in home: Yes Firearms in home: No Do you feel safe at home: Yes Do you feel safe in your relationship?: Yes Victim of physical abuse: No Victim of emotional abuse: No Victim of sexual abuse: No Would you like helpful sources: No
--- NOTE | 2025-06-24 16:40 | DI.CT_ITS ---
Exam(s) CT ABDOMEN PELVIS W EXAM: CT ABDOMEN PELVIS W CLINICAL HISTORY: N/v/d left flank pain. TECHNIQUE: Imaging Protocol: Axial computed tomography images with coronal and sagittal reformatted images were created and reviewed CONTRAST MATERIAL: Intravenous: Omnipaque 350 Contrast volume:75 ml Oral: no COMPARISON: No exams were available for comparison FINDINGS: ABDOMEN and PELVIS: Lung Bases: No acute findings. Liver: Normal density. No suspicious mass. Gallbladder and biliary tract: Cholecystectomy. No biliary dilation. Pancreas: Normal density. No abnormal calcifications or inflammatory process. No evidence of mass. Spleen: Normal. Kidneys: Normal size, contour and axis. Symmetric perfusion. No radiodense stones. No obstructive uropathy. No suspicious masses seen. Adrenal glands: No masses seen. Vasculature: Abdominal aorta non-dilated. Soft tissues: Spinal stimulator device in left posterior soft tissues.. Breast implants. Bladder: No gross wall thickening. No calculi.No focal mass. Bowel: The stomach is empty. No obstruction. No bowel wall thickening. No air-fluid levels. Normal quantity of stool. Appendix normal. Peritoneal cavity: No ascites. No focal collection. No mesenteric inflammatory response. No free air. Bones: Hardware at the lumbosacral junction. Reproductive organs: Unremarkable. Lymph nodes: No pathologically enlarged lymph nodes. IMPRESSION:: No acute abnormality in the abdomen or pelvis. RADIATION DOSE DELIVERED: Total DLP DATA REPOSITORY: All CT scans at this facility are submitted to the National Radiology Data Registry (NRDR) Dose Index Registry (DIR) with the [employer] (ACR). RADIATION OPTIMIZATION: All CT scans at this facility use at least one of these dose optimization techniques: automated exposure control; mA and/or kV adjustment per patient size (includes targeted exams where dose is matched to clinical indication); or iterative reconstruction.
[2025-06-24] MEDS: Normal Saline 1,000 ML 1000 ML IV (17:09)
[2025-06-24] MEDS: Droperidol 5 MG/2 ML VIAL 1.25 MG IVP (17:11)
[2025-06-24] MEDS: ACETAMINOPHEN 1,000 MG/100 ML BAG 400 MG IVPB (17:12)
[2025-06-24 17:25] LABS: Abs Immature Grans 0.02 10^3/uL (0.0-0.06); HCT 43.2 % (36.0-46.0); HGB 14.3 g/dL (11.2-15.7); Immature Grans % 0.3 %; MCH 29.4 pg (27.0-33.0); MCHC 33.1 % (32.0-36.0); MCV 89 fL (80-95); MPV 8.7 fL (8.0-11.0); Platelet Count 530 10^3/uL (130-400); RBC 4.87 10^6/uL (3.93-5.22); RDW 12.7 % (11.7-14.6); RDW-SD 41.6 fL; WBC 7.96 10^3/uL (4.4-10.8)
[2025-06-24 17:39] LABS: ALT 40 U/L (14-59); AST 19 U/L (15-37); Albumin 4.3 g/dL (3.4-5.0); Alkaline Phosphatase 60 U/L (46-116); Anion Gap 7.0 mmol/L (3-11); BUN 11 mg/dL (7-18); Bilirubin, Total 0.8 mg/dL (0.2-1.0); CO2 29.0 mmol/L (21.0-32.0); Calcium 8.8 mg/dL (8.5-10.1); Chloride 99 mmol/L (98-107); Estimated GFR 76.92 (mL/min/1.73m2); Glucose 91 mg/dL (74-106); INR 1.0 (0.9-1.1); PTT Activated 25.4 sec (20.6-30.2); Potassium 3.6 mmol/L (3.5-5.1); Prothrombin Time 9.8 sec (9.1-11.1); Sodium 135 mmol/L (136-145); Total Protein 8.1 g/dL (6.4-8.2)
[2025-06-24 17:58] LABS: Glucose Negative (Negative)
[2025-06-24 18:04] LABS: RBC >50 HPF (0-2)
[2025-06-24] MEDS: Normal Saline Flush 10 ML SYR IVP (18:05)
[2025-06-24] MEDS: Omnipaque 350 MG/ML 100 ML BTL IJ (18:05)
[2025-06-24] MEDS: Normal Saline - Diluent 50 ML VIAL IJ (18:05)
[2025-06-24 18:09] LABS: Cannabinoids THC Positive (Negative); METHADONE URINE SCREEN Negative (Negative)
[2025-06-24 18:20] VITALS: BP 127/61; PULSE 71
[2025-06-24 18:22] VITALS: PULSE 75; O2SAT 99
[2025-06-24 18:30] VITALS: PULSE 80; O2SAT 100
[2025-06-24 18:45] VITALS: PULSE 72; O2SAT 100
[2025-06-24] MEDS: Phenazopyridine 100 MG TAB PO (19:25)
[2025-06-24] MEDS: MacroBID 100 MG CAP PO (19:25)
== END 2025-06-24 19:30 | disposition home or self-care (01) ==
PROVIDERS: Emergency Provider General Practice; PCP Neuromusculoskeletal Medicine & OMM
DX: N39.0 Urinary tract infection, site not specified (principal); R31.9 Hematuria, unspecified
CPT/HCPCS: 80053; 80307; 86850; 86900; 86901; 96361; 96365; 96375; 99285; 74177; 81003; 81015; 85025; 85610; 85730; 99284; J0131; J1790; J3490

== ENCOUNTER 2025-08-02 01:20 | Inpatient (IN) | payer MEDICAID, SELFPAY ==
[2025-08-02] VITALS (26 sets, daily range): BP systolic 102–126; BP diastolic 58–78; PULSE 66–86; RESP 12–18; TEMP 36–36.7; O2SAT 96–100
--- NOTE | 2025-08-02 01:20 | ED.GENADUL_ITS ---
Discharge Plan Disposition Patient Disposition: Admit to [facility] Condition: Stable Discharge Details Clinical Impression: UTI (urinary tract infection), Sepsis Primary Care Provider: Janusz Harrison ED Provider: Janusz Montez Home Meds and New Rx's Prescriptions: No Action levothyroxine [Synthroid] 50 mcg tablet 50 mcg PO DAILY lorazepam 1 mg tablet 1 mg PO DAILY PRN (Reason: anxiety) Qty: 28 0RF Emgality Pen 120 mg/mL pen injector 120 mg subcut QMONTH Qty: 1 5RF Restasis MultiDose 0.05 % drops 1 drp ophthalmic (eye) Q12H buprenorphine [Butrans] 20 mcg/hour patch weekly 1 patch transdermal QWEEK Qty: 4 0RF buprenorphine HCl [Belbuca] 450 mcg film 450 mcg buccal Q12H Qty: 56 0RF oxycodone 5 mg tablet 10 mg PO TID MDD 25mg PRN Rx Instructions: 5-10mg every 6 hours as needed for pain, TDD 25mg; HPI General Mode of arrival: EMS . Date/Time Provider Initiated Documentation: 08/02/25 01:20 . Limitations to Documentation: no limitations . Information obtained by: patient, EMS, RN notes reviewed and old records reviewed . HPI Narrative: Patient presents to ED by ambulance after developing nausea, vomiting, diarrhea along with weakness and muscle cramps this evening. Patient reports that she began to have UTI type symptoms about 3 days ago. Had some leftover antibiotic from last month which she took tonight. Began having symptoms after this. EMS reports patient pale, diaphoretic with a temp of 96 and upon standing became extremely weak and lightheaded with faint radial pulses. IV was placed and flui ds started. She received IV acetaminophen and ondansetron en route. Patient arrives complaining of severe muscle spasms in her legs. Denies having any abdominal pain, chest pain, shortness of breath. Denies cough. Related Data Home Medications ?Medication ?Instructions ?Recorded ?Confirmed levothyroxine 50 mcg tablet 50 mcg PO DAILY 04/30/23 1 (Synthroid) galcanezumab-gnlm 120 mg/mL 120 mg subcut QMONTH #1 mL 10/26/23 08/02/25 subcutaneous pen injector (Emgality Pen) lorazepam 1 mg tablet 1 mg PO DAILY PRN anxiety #2 8 tabs 10/26/23 08/02/25 buprenorphine 20 mcg/hour weekly 1 patch transdermal Q WEEK #4 ea 01/23/24 08/02/25 transdermal patch (Butrans) buprenorphine HCl 450 mcg buccal 450 mcg buccal Q12H # 56 ea 01/23/24 08/02/25 film (Belbuca) cyclosporine 0.05 % eye drops 1 drp ophthalmic (eye) Q 12H 03/13/24 08/02/25 (Restasis MultiDose) oxycodone 5 mg tablet 10 mg PO TID PRN 06/24/25 Previous Rx's ?Medication ?Instructions ?Recorded galcanezumab-gnlm 120 mg/mL 120 mg subcut QMONTH #1 mL 10/26/23 subcutaneous pen injector (Emgality Pen) lorazepam 1 mg tablet 1 mg PO DAILY PRN anxiety #2 8 tabs 10/26/23 buprenorphine 20 mcg/hour weekly 1 patch transdermal Q WEEK #4 ea 01/23/24 transdermal patch (Butrans) buprenorphine HCl 450 mcg buccal 450 mcg buccal Q12H # 56 ea 01/23/24 film (Belbuca) Allergies Allergy/AdvReac Type Severity Reaction Status Date / Time meloxicam (From Mobic) AdvReac Intermediate hives, Verified 08/02/25 02:24 nose bleeds Casein Allergy Intermediate hives Uncoded 08/02/25 02:24 General HEATHER: 3 Exam Narrative Exam Narrative: Const: WDWN female in NAD. VS per triage. HEENT: NC/AT. Normal facial exam. Neck: Supple. Trachea midline. Lungs: Normal respiratory effort. Lungs are clear. Cor: RRR without murmur. Good radial pulses. GI: Soft/ND/NT. Neuro: A+O x 3. Normal speech, mentation, gait. Cranial nerves II - XII grossly intact. No gross motor or sensory deficit. Ext: No C/C/E. Cool extremities. Medical Decision Making Patient presenting to ED with onset of nausea, vomiting, diarrhea, weakness, muscle cramps this evening. Has had UTI type symptoms for a couple of days. Took leftover Macrodantin this evening. Began feeling ill later and thought possibly allergic reaction. EMS reports pale, diaphoretic, cool as well as near syncope upon standing. Received 500 of IV fluid, a gram of IV acetaminophen and 4 mg IV ondansetron en route. She is not tachycardic here. She is hypothermic. Her abdomen is benign. Complaining of significant cramps in her legs. Given her hypothermia, near syncope, prior UTI symptoms consider sepsis. Also consider electrolyte abnormalities, dehydration, does not appear to be allergic type reaction as patient thought. Her abdomen is benign and she is not having abdominal pain so I do not think this is an abdominal process. She had an unremarkable CT scan just over a month ago on previous ED visit. Will plan to complete a 30 cc/kg bolus of fluids. Still feels nauseated so we will give prochlorperazine. Laboratory studies including VBG and lactic acid, blood cultures obtained. Straight cath urine ordered. She has no URI symptoms, chest pain, shortness of breath. Patient's laboratory studies significant for white count of 14.6, platelets 428, lactic acid of 2.6. Venous pH 7.49 consistent with her hyperventilation that she exhibited on arrival. Electrolytes and kidney function unremarkable. Liver function normal. Urinalysis shows ketones, blood, leukocyte esterase with 10-20 white cells, moderate bacteria, epithelial cells present. However, given her symptoms of UTI over the last couple of days with hypothermia, elevated white count, mild lactic acidosis this all seems consistent with UTI and sepsis. She is otherwise feeling better after fluid resuscitation and prochlorperazine given here. She still has some cramping but not as severe as before. Abdomen is benign otherwise. She has remained hemodynamically stable. Case discussed with hospitalist. Patient to be admitted for further management of UTI and sepsis. Medical Records Medical records reviewed: Yes I reviewed the patient's medical records. Lab Data Lab results reviewed: Yes I reviewed the patient's lab results. Lab results narrative: see [facility] ECG Data Attestation: I personally reviewed and interpreted this ECG (s) as follows: Prior ECG tracings: not available for review Interpretation: see MDM/EKG Critical Care Time Critical Care Time Critical Care Time: Yes Total Critical Care Time: 45 Attestation: Upon my evaluation, this patient had a high probability of imminent or life- threatening deterioration, which required my direct attention, intervention, and personal management. I have personally provided 45 minutes of critical care time exclusive of time spent on separately billable procedures. Time includes monitoring for potential decompensation, ordering of tests and medications, review of laboratory and radiology results, discussion with consultants and documentation . Interventions were performed as documented above in procedures. PFSH All Active Problems (Updated 08/02/25 @ 03:20 by Janusz Montez MD) Sepsis (Acute) UTI (urinary tract infection) (Acute) Marijuana smoker, continuous (Acute) Buprenorphine dependence (Acute) Chronic prescription benzodiazepine use (Acute) Hot flashes (Acute) Sudden severe onset. 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; last imaging in 2014 per patient Sjogren syndrome, unspecified (Acute) Medical History History of chronic pain Keratoconjunctivitis 06/08/23 [facility] Bilateral dry eyes 06/08/23 [facility] Surgical History S/P cholecystectomy Spinal cord stimulator status H/O breast augmentation H/O laminectomy (~2012) History of lumbar fusion (~2013) Cage pedicle screws H/O laminectomy (~2011) dura puncture occurred during procedure Family History (Updated 09/14/23 @ 09:54 by Belem Corrae) Father Dementia Mother No problems noted. 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 Pets and animals: Yes Pets and animals: cat(s) Sexually active: Yes Do you think of yourself as: straight/heterosexual Current gender identity: female What is your relationship status?: living with partner How often do you talk on the phone with friends or family?: three or more times per week How often do you get together with friends or relatives?: twice per week Do you belong to any clubs or organized social groups?: no Panel score (0-1 are the most socially isolated patients): 2 What type of physical activity do you participate in: none Marely/Lutheran: None Special marely needs: No Agree to transfusion: Yes Seatbelt use: always Helmet use: Yes Drive intox or ride w/intox racing car driver: No Working smoke detector in home: Yes Carbon monox detector in home: Yes Firearms in home: No Do you feel safe at home: Yes Do you feel safe in your relationship?: Yes Victim of physical abuse: No Victim of emotional abuse: No Victim of sexual abuse: No Would you like helpful sources: No
--- NOTE | 2025-08-02 01:30 | RT.EKG_ITS ---
APPROVED REPORT Exam: Resting ECG Reason for Exam: sepsis Patient Location: E HR:86 bpm ECG Measurements Heart Rate 86 AXIS KS 127 P 66 QRSd 75 QRS 72 QT 395 T 29 QTc 473 Conclusion Sinus rhythm...normal P axis, V-rate 60- 99 Probable left atrial enlargement...P >50mS, <-0.10mV V1 Normal [place]/Interval No acute ST changes
[2025-08-02 01:44] LABS: BE (Venous) -1 mmol/L (-2-3); HCO3 (Venous) 23 mmol/L (23-28); O2 Sat (Venous) 55 %; TCO2 (Venous) 20 mmol/L (24-29); pCO2 (Venous) 30 mmHg (41-51); pO2 (Venous) 28 mmHg
[2025-08-02 01:46] LABS: Abs Immature Grans 0.06 10^3/uL (0.0-0.06); HCT 42.9 % (36.0-46.0); HGB 14.3 g/dL (11.2-15.7); Immature Grans % 0.4 %; MCH 29.2 pg (27.0-33.0); MCHC 33.3 % (32.0-36.0); MCV 88 fL (80-95); MPV 9.3 fL (8.0-11.0); Platelet Count 428 10^3/uL (130-400); RBC 4.89 10^6/uL (3.93-5.22); RDW 13.1 % (11.7-14.6); RDW-SD 42.2 fL; WBC 14.64 10^3/uL (4.4-10.8)
[2025-08-02 02:02] LABS: ALT 24 U/L (14-59); AST 18 U/L (15-37); Albumin 3.7 g/dL (3.4-5.0); Alkaline Phosphatase 50 U/L (46-116); Anion Gap 11.8 mmol/L (3-11); BUN 12 mg/dL (7-18); Bilirubin, Total 0.6 mg/dL (0.2-1.0); CO2 23.2 mmol/L (21.0-32.0); Calcium 8.7 mg/dL (8.5-10.1); Chloride 106 mmol/L (98-107); Estimated GFR 67.78 (mL/min/1.73m2); Glucose 101 mg/dL (74-106); Lipase 46 U/L (<78); Magnesium 2.1 mg/dL (1.8-2.4); Potassium 3.7 mmol/L (3.5-5.1); Sodium 141 mmol/L (136-145); Total Protein 7.0 g/dL (6.4-8.2)
[2025-08-02 02:20] LABS: Glucose Negative (Negative)
[2025-08-02] MEDS: Prochlorperazine 10 MG/2 ML VIAL IVP (02:21)
[2025-08-02 02:27] LABS: C & S Indicated? Yes
[2025-08-02] MEDS: cefTRIAXone 1 GM/50 ML BAG IVPB (03:07)
--- NOTE | 2025-08-02 03:53 | HPE_ITS ---
Date of service: 08/02/25 Time of Service: 03:53 Assessment and Plan Assessment and plan (1) Sepsis: Start date: 08/02/25 Status: Acute Assessment and plan: This is a 50-year-old lady presenting with sepsis criteria but no organ dysfunction. She does have chronic problems with bladder control this may be secondary to her chronic back pain with arachnoiditis. She did have chills at home but has a low temperature upon presentation to the ED. No imaging was performed with ultrasound not available and patient having no abdominal discomfort. Source of sepsis most likely is UTI. This appears recurrent. Urinalysis was performed with culture performed and patient was initiated on IV Rocephin. She did self treat with leftover antibiotics and is at risk for resistant pathogen. Once she is adjusted to appropriate oral medical therapy and is improving, she is expected to be discharged home within 48 to 96 hours. She is not severely hypotensive in the ED but did have a weak pulse at the scene and fluids were given by EMS. In the ED she did receive IV fluid resuscitation for sepsis. She will continue on IV hydration as needed. She is a full code. (2) UTI (urinary tract infection): Start date: 08/02/25 Status: Acute Assessment and plan: Recurrent with patient self treating with leftover antibiotic therapy increasing possibility of resistant pathogen. Follow-up on urine culture and for now initiate IV Rocephin. Symptomatic care. Ultrasound of renal system will be performed when available. She has no history of urinary retention but does have problems with bladder control. (3) Hypothyroidism: Status: Chronic Assessment and plan: Continue outpatient replacement therapy. Check TSH. (4) Chronic back pain: Status: Chronic Assessment and plan: Continue outpatient medical therapy with maintenance opioid therapy as well as as needed oxycodone. Watch for sedation and respiratory suppression. Patient has been compliant with medical therapy without complications. (5) Chronic, continuous use of opioids: Status: Chronic Assessment and plan: Patient is on a weekly patch of a form of buprenorphine and also uses immediate release buprenorphine. She also has oxycodone as needed as an outpatient. She has used these meds safely with only using THC for adjunct of therapy for chronic pain and anxiety. Patient is appropriate supervised by family and her specialty care provider. She has not been high risk for self treatment in the past with the patient being seen by me at the [facility] as an outpatient in the past. (6) Chronic anxiety: Status: Chronic Assessment and plan: Continue low-dose Ativan as needed with caution. Watch for respiratory suppression. Long-term the patient is using the combination of opiate therapy with benzodiazepines safely with supervision. She does live with family that watches for complications of her therapy. History of Present Illness History of Present Illness Chief Complaint: Nausea, vomiting and diarrhea with back pain and severe muscle spasm. Narrative: This is a 50-year-old female patient has a chronic history of back pain on high- dose, maintained narcotic therapy which is stable with specialty care in [place] being treated for arachnoiditis. About 5 weeks ago she had symptoms of nausea, vomiting and diarrhea with some blood in her vomitus and she had dry heaves and some chills. She has chronic problems with bladder control but does not have a history of urinary retention. She denies any fever or chills. She was seen in the urgent care at that time and treated for UTI with antibiotic and Pyridium. About 3 days prior to this presentation the patient had similar symptoms and restarted antibiotic that she had leftover from the previous visit. She was not improving and reported to the ED for evaluation. She did had some chills. She had no measured fever. Her urinalysis was markedly positive and she was initiated on IV Rocephin. Her presenting symptoms met sepsis criteria with hypothermia, elevated WBC and positive lactate. She also had a source for infection. Procalcitonin was not measured. PDMP was reviewed and consistent with her chronic pain management on a monthly basis. Urine drug screen will be done upon admission to screen for other drug use though the patient appears to have low risk for self treatment. She does have some chronic anxiety on benzodiazepines which has higher risk with her narcotic therapy. This is being monitored appropriately by a specialist in [place]. The patient is expected to be hospitalized greater than 48 hours or less than 96 hours. She will return home after stabilized. She is a full code. Review of Systems Narrative: 13 point review system otherwise unrevealing or stable. PFSH All Active Problems (Updated 08/02/25 @ 05:23 by JHONATAN BOJORQUEZ) Chronic anxiety (Chronic) Sepsis (Acute) UTI (urinary tract infection) (Acute) Marijuana smoker, continuous (Acute) Buprenorphine dependence (Acute) Chronic prescription benzodiazepine use (Acute) Hot flashes (Acute) Sudden severe onset. 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 Pets and animals: Yes Pets and animals: cat(s) Sexually active: Yes Do you think of yourself as: straight/heterosexual Current gender identity: female What is your relationship status?: living with partner How often do you talk on the phone with friends or family?: three or more times per week How often do you get together with friends or relatives?: twice per week Do you belong to any clubs or organized social groups?: no Panel score (0-1 are the most socially isolated patients): 2 What type of physical activity do you participate in: none Marely/Restorationist: None Special marely needs: No Agree to transfusion: Yes Seatbelt use: always Helmet use: Yes Drive intox or ride w/intox guard driver: No Working smoke detector in home: Yes Carbon monox detector in home: Yes Firearms in home: No Do you feel safe at home: Yes Do you feel safe in your relationship?: Yes Victim of physical abuse: No Victim of emotional abuse: No Victim of sexual abuse: No Would you like helpful sources: No Meds Allergies and Home Medications Allergies Allergy/AdvReac Type Severity Reaction Status Date / Time meloxicam (From Mobic) AdvReac Intermediate hives, Verified 08/02/25 02:24 nose bleeds Casein Allergy Intermediate hives Uncoded 08/02/25 02:24 Home Medications ?Medication ?Instructions ?Recorded ?Confirmed ?Type levothyroxine 50 mcg tablet 50 mcg PO DAILY 04/30/23 1 History (Synthroid) galcanezumab-gnlm 120 mg/mL 120 mg subcut QMONTH #1 mL 10/26/23 08/02/25 Rx subcutaneous pen injector (Emgality Pen) lorazepam 1 mg tablet 1 mg PO DAILY PRN anxiety #2 8 tabs 10/26/23 08/02/25 Rx buprenorphine 20 mcg/hour weekly 1 patch transdermal Q WEEK #4 ea 01/23/24 08/02/25 Rx transdermal patch (Butrans) buprenorphine HCl 450 mcg buccal 450 mcg buccal Q12H # 56 ea 01/23/24 08/02/25 Rx film (Belbuca) cyclosporine 0.05 % eye drops 1 drp ophthalmic (eye) Q 12H 03/13/24 08/02/25 History (Restasis MultiDose) oxycodone 5 mg tablet 10 mg PO TID PRN 06/24/25 History Exam Narrative Exam Narrative: General: Patient appears appropriate for age, chronically ill appearing, alert and oriented x 3. She is made in moderate distress with her back discomfort. HEENT: Normocephalic, eyes with pupils equal and reactive to light symmetrically, extraocular movement intact and sclera anicteric. Oropharynx with moist mucosa and fair dentition. Neck: Supple without JVD. Back: Decreased range of motion with loss of lumbar lordosis. No CVA tenderness. Lungs: Clear to AND percussion with no focalizing rales or rhonchi. Good aeration. Breast: Exam deferred. Heart: Regular rate and rhythm with no appreciable murmur or gallop. Abdomen: Normal contour, soft and nontender to palpation with no palpable hepatosplenomegaly. No suprapubic tenderness. No guarding or rebound. Genitalia/rectal: Exam deferred. Extremities: Without clubbing, cyanosis or pitting edema. Peripheral pulses intact. Skin: Normal color, warm and dry with increased freckling over sun exposed areas. Normal turgor. Neuro: Cranial nerves II through XII gross intact, no focalizing motor deficits or tremor. Reported decreased sensation over lower extremities which is chronic. Psych: Normal affect and mood during discussion. No abnormal thought processes. Remote and recent memory intact. Results Labs 08/02/25 06:51 08/02/25 06:51 Labs: Laboratory Results - last 24 hr 08/02/25 08/02/25 01:38 02:10 WBC 14.64 H RBC 4.89 Hgb 14.3 Hct 42.9 MCV 88 MCH 29.2 MCHC 33.3 RDW 13.1 Plt Count 428 H MPV 9.3 Immature Gran % 0.4 Neutrophils % 82.6 Lymphocytes % 9.9 Monocytes % 6.5 Eosinophils % 0.4 Basophils % 0.2 Nucleated RBC % 0.0 Absolute Neutrophils 12.09 H Absolute Lymphocytes 1.45 Absolute Monocytes 0.95 H Absolute Eosinophils 0.06 Absolute Basophils 0.03 VBG pH 7.49 H VBG pCO2 30 L VBG pO2 28 VBG HCO3 23 VBG Total CO2 20 L VBG O2 Saturation 55 VBG Base Excess -1 VBG Lactate 2.6 H* Sodium 141 Potassium 3.7 Chloride 106 Carbon Dioxide 23.2 Anion Gap 11.8 H BUN 12 Creatinine 1.0 Est GFR (CKD-EPI 2020) 67.78 Glucose 101 Calcium 8.7 Magnesium 2.1 Total Bilirubin 0.6 AST 18 ALT 24 Alkaline Phosphatase 50 Total Protein 7.0 Albumin 3.7 Lipase 46 Urine Color Yellow Urine Clarity Sl Cloudy Urine pH 6.5 Ur Specific [place] 1.025 Urine Protein 100 H Urine Ketones >=160 H Urine Blood Large H Urine Nitrite Negative Urine Bilirubin Small H Urine Urobilinogen 1.0 H Ur Leukocyte Esterase Trace H Urine RBC 3-5 H Urine WBC 10-20 H Ur Epithelial Cells Moderate Urine Crystals Negative Urine Bacteria Moderate Urine Casts Negative Urine Mucus Moderate Ur Culture Indicated? Yes Urine Glucose Negative Last Vital Signs Temp 36.1 C L 08/02/25 01:27 Pulse 69 08/02/25 03:40 Resp 12 08/02/25 03:40 BP 109/69 08/02/25 03:30 Pulse Ox 96 08/02/25 03:40 Time Spent Time spent with Patient: >75 minutes Time was spent: preparing to see the patient(eg.review tests), obtaining and/or reviewing separately otained hiistory, ordering medications,tests, procedures, indepentently interpreting results and counseling the patient
--- NOTE | 2025-08-02 04:50 | W.PC.ACHO ---
Registration Status: REG ER Primary Language: Preferred Language: ED Information & Data Chief Complaint Nausea/Vomit/Diar 08/02/25 01:33 Chief Complaint Nausea/Vomit/Diar 08/02/25 01:27 Triage Note pt arrives via EMS with 08/02/25 01:27 report of a possible allergic reaction. Pt writhing in pain with leg cramps reports feeling like she may have had a UTI and took the antibiotic given to her from a previous visit for this. She reports it was cephalexin. PT states she has been dry heaving this evening as well and diarrhea with stomach cramps . Medical / Surgical History (Last Reviewed 08/02/25 @ 03:54 by Bronson Welch) History of chronic pain Keratoconjunctivitis Bilateral dry eyes (Last Reviewed 08/02/25 @ 03:54 by Bronson Welch) S/P cholecystectomy Spinal cord stimulator status H/O breast augmentation H/O laminectomy (~2012) History of lumbar fusion (~2013) H/O laminectomy (~2011) Most Recent Vital Signs Temperature 36.1 C L 08/02/25 01:27 Temperature Source Oral 08/02/25 01:27 Pulse 69 08/02/25 03:40 Pulse 69 08/02/25 03:40 Respiratory Rate 12 08/02/25 03:40 Blood Pressure 109/69 08/02/25 03:30 Blood Pressure Mean 80 08/02/25 03:30 Pulse Oximetry 96 08/02/25 03:40 Oxygen Delivery Method Room Air 08/02/25 01:27 Oxygen Flow Rate 0 08/02/25 01:27 Pain Level 7 08/02/25 01:27 Allergies meloxicam (From Mobic) Adverse Reaction (Intermediate, Verified 08/02/25 02:24) hives, nose bleeds Casein Allergy (Intermediate, Uncoded 08/02/25 02:24) hives Precautions Isolation Standard precaution 08/02/25 01:33 IV IV Catheter Type [Right Peripheral IV Antecubital] Diagnostics 08/02/25 08/02/25 08/02/25 Range/Units 04:40 02:10 01:38 WBC 14.64 H (4.4-10.8) 10^3/uL RBC 4.89 (3.93-5.22) 10^6/uL Hgb 14.3 (11.2-15.7) g/dL Hct 42.9 (36.0-46.0) % MCV 88 (80-95) fL MCH 29.2 (27.0-33.0) pg MCHC 33.3 (32.0-36.0) % RDW 13.1 (11.7-14.6) % Plt Count 428 H (130-400) 10^3/uL MPV 9.3 (8.0-11.0) fL Immature Gran % 0.4 % Neutrophils % 82.6 % Lymphocytes % 9.9 % Monocytes % 6.5 % Eosinophils % 0.4 % Basophils % 0.2 % Nucleated RBC % 0.0 (0.0-0.3) % Absolute Neutrophils 12.09 H (1.2-6.7) 10^3/uL Absolute Lymphocytes 1.45 (1.2-3.4) 10^3/uL Absolute Monocytes 0.95 H (0.1-0.8) 10^3/uL Absolute Eosinophils 0.06 (0.0-0.7) 10^3/uL Absolute Basophils 0.03 (0.0-0.2) 10^3/uL VBG pH 7.49 H (7.31-7.41) VBG pCO2 30 L (41-51) mmHg VBG pO2 28 mmHg VBG HCO3 23 (23-28) mmol/L VBG Total CO2 20 L (24-29) mmol/L VBG O2 Saturation 55 % VBG Base Excess -1 (-2-3) mmol/L VBG Lactate 2.6 H* (<or=2.0) mmol/L Sodium 141 (136-145) mmol/L Potassium 3.7 (3.5-5.1) mmol/L Chloride 106 (98-107) mmol/L Carbon Dioxide 23.2 (21.0-32.0) mmol/L Anion Gap 11.8 H (3-11) mmol/L BUN 12 (7-18) mg/dL Creatinine 1.0 (0.55-1.02) mg/dL Est GFR (CKD-EPI 2020) 67.78 (mL/min/1.73m2) Glucose 101 (74-106) mg/dL Calcium 8.7 (8.5-10.1) mg/dL Magnesium 2.1 (1.8-2.4) mg/dL Total Bilirubin 0.6 (0.2-1.0) mg/dL AST 18 (15-37) U/L ALT 24 (14-59) U/L Alkaline Phosphatase 50 (46-116) U/L Total Protein 7.0 (6.4-8.2) g/dL Albumin 3.7 (3.4-5.0) g/dL Lipase 46 (<78) U/L Urine Color Yellow (Yellow) Urine Clarity Sl Cloudy (Clear) Urine pH 6.5 (5-8) Ur Specific [place] 1.025 (1.005-1.025) Urine Protein 100 H (Neg-Trace) mg/dL Urine Ketones >=160 H (Negative) mg/dL Urine Blood Large H (Negative) Urine Nitrite Negative (Negative) Urine Bilirubin Small H (Negative) Urine Urobilinogen 1.0 H (Up to 0.2) mg/dL Ur Leukocyte Esterase Trace H (Negative) Urine RBC 3-5 H (0-2) HPF Urine WBC 10-20 H (0-5) HPF Ur Epithelial Cells Moderate (Negative) HPF Urine Crystals Negative (Negative) HPF Urine Bacteria Moderate (Negative) HPF Urine Casts Negative (Negative) LPF Urine Mucus Moderate (Negative) Ur Culture Indicated? Yes Urine Glucose Negative (Negative) mg/dL COVID-19 Source Pending SARS-CoV-2 (PCR) Pending Influenza Type A (PCR) Pending Influenza Type B (PCR) Pending RSV (PCR) Pending 08/02/25 02:54 Blood Culture - Pending Blood 08/02/25 02:30 Blood Culture - Pending Blood 08/02/25 02:10 Urine Culture - Pending Urine - Reflex from Ua Intake and Output - 24 Hour Total 08/02/25 01:19 thru 08/02/25 03:47 Intake Total 1166.667 Balance 1166.667 Weight 65.771 kg Intake: IV 1166.667 Other: Stool Characteristics Liquid Mucoid Emesis Description Retching Falls Risk Assessment History of Falls No History 08/02/25 01:33 Contributing Factors Medications 08/02/25 01:33 Ambulatory Aids Uses ambulatory device + 08/02/25 01:33 Tubes/Lines None 08/02/25 01:33 Gait Evaluation No gait disturbance 08/02/25 01:33 Cognition No cognitive impairment 08/02/25 01:33 Fall Total Score 33 08/02/25 01:33 Level of Risk Moderate Risk 08/02/25 01:33 Problems (Last Reviewed 08/02/25 @ 03:54 by Bronson Welch) Chronic anxiety (Chronic) Sepsis (Acute) UTI (urinary tract infection) (Acute) Chronic, continuous use of opioids (Chronic) Chronic back pain (Chronic) Hypothyroidism (Chronic) v v v v v v v v v Sending and/or Receiving Nurses: Please use comment section below to note any information pertinent to the patient hand-off not included above. Information / Comments: Received report from ED. Came in with UTI like symptoms. R PIC AC #20. A+Ox4. Chronic back pain. Ambulates independently with walker PRN. Report received from: Claudia LAST RN
[2025-08-02] MEDS: Lactated Ringers 1,000 ML 125 ML IV ×2 (05:20→18:14)
[2025-08-02 05:30] LABS: COVID-19 PCR Negative (Negative); RSV PCR Negative (Negative)
[2025-08-02 07:00] LABS: HCT 37.0 % (36.0-46.0); HGB 12.6 g/dL (11.2-15.7); MCH 30.1 pg (27.0-33.0); MCHC 34.1 % (32.0-36.0); MCV 89 fL (80-95); MPV 9.3 fL (8.0-11.0); Platelet Count 353 10^3/uL (130-400); RBC 4.18 10^6/uL (3.93-5.22); RDW 13.1 % (11.7-14.6); RDW-SD 42.6 fL; WBC 11.82 10^3/uL (4.4-10.8)
[2025-08-02 07:28] LABS: ALT 22 U/L (14-59); AST 17 U/L (15-37); Albumin 3.1 g/dL (3.4-5.0); Alkaline Phosphatase 42 U/L (46-116); Anion Gap 6.8 mmol/L (3-11); BUN 11 mg/dL (7-18); Bilirubin, Total 0.7 mg/dL (0.2-1.0); CO2 26.2 mmol/L (21.0-32.0); Calcium 7.9 mg/dL (8.5-10.1); Chloride 108 mmol/L (98-107); Estimated GFR 104.00 (mL/min/1.73m2); Glucose 124 mg/dL (74-106); Magnesium 2.1 mg/dL (1.8-2.4); Potassium 3.8 mmol/L (3.5-5.1); Sodium 141 mmol/L (136-145); Total Protein 6.0 g/dL (6.4-8.2)
[2025-08-02 07:32] LABS: TSH (W/Ref FT4) 0.52 uIU/mL (0.36-3.74)
[2025-08-02] MEDS: Levothyroxine 50 MCG TAB PO (08:57)
[2025-08-02] MEDS: Pregabalin 25 MG CAP PO ×2 (08:57→21:08)
[2025-08-02] MEDS: Enoxaparin 40 MG/0.4 ML SYR SC (08:58)
[2025-08-02] MEDS: LORazepam 1 MG TAB PO (09:01)
[2025-08-02 09:07] LABS: Lab Add On Test DONE
[2025-08-02 09:26] LABS: Cannabinoids THC Positive (Negative); METHADONE URINE SCREEN Negative (Negative)
--- NOTE | 2025-08-02 10:17 | PDOC.CMIN ---
Date of service: 08/02/25 Time of Service: 10:17 Care Management Initial Assmt Initial Assessment Reason for Hospitalization: Sepsis, UTI Functional Status/Living Situation Patient Presentation: Jaycee was lying in bed when CM met with her. She stated that she is trying to catch up on sleep, as she didn't get any sleep last night. She was pleasant and engaged well in conversation. She reported that she lives in [facility] with her , but he is out of town currently, helping her father who is ill, out of state. She stated that her two adult sons live nearby and are supportive. 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 She stated that she sees a specialist in [place] for this condition, and her PCP also follows her closely. She stated that she is currently independent, but lives on the third floor, which she feels will need to change at some point in the future to a first floor apartment. 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 She did not identify the need for services at this time. CM discussed utilizing the care technician at her PCP office and/or YEHUDA for support in the community, as needed. She was appreciative of the suggestion. Per MD, urine cultures are pending, and is being treated with IV antibiotics. CM will continue to follow. Town of Residence: [place] Resides with: Spouse (Giuseppe) Significant Other/Family: Local Natural Supports: , Giuseppe Two adult sons, live next door. Employment Status: Disabled Instrumental Activities of Daily Living (ADLs): Independent Activities/Hobbies/SocialSupport: Tries to remain active, walks regularly. Medications Medication Management: No Issues/Barriers identified Physical Functioning/Mobility Assistive Device: cane, FWW Advance Directives Advance Directives: Do you have an Advance Directive: N 02/24/24, 12:32 AD On File at [facility]: N 09/05/19, 15:50 Date Asked 08/02/25 Today, 07:08 AD Date Reviewed COLST On File at [facility] No 06/24/25, 16:08 COLST Date Scanned Code Status Resuscitation Status Full Code Insurance Coverage/Financial Issues Insurance: [facility] Care Team Visit Care Team Role Provider Type Aba Dickson MD MD [facility] STAFF PHYSICIAN Janusz Harrison Primary Care Provider OSTEOPATHIC DOCTOR Janusz Montez MD Emergency Provider [facility] STAFF PHYSICIAN Bronson Welch Admit Provider NON-[facility] STAFF PHYSICIAN Attending Provider Discharge Potential Discharge Needs: PCP F/U Appt Anticipated Barriers to Discharge: None Identified Patient/Family Education Needs: Review discharge instructions, discuss Ask Me Three Transportation: Private vehicle Plan: Anticipate Jaycee will return home once medically cleared. She will be driven home via private vehicle by family vs RCT, if family is not available. She will follow up with her PCP and discharge plan of care. CM will continue to follow. Social Determinants of Health Screening Social Determinants of health last assessed in clinic: 08/02/25 Will the Patient Participate in the Screening?: Yes Do you worry about having a steady place to live?: yes What is your living situation today?: I have housing today, but am worried about losing it Problems where you live: no known problems In the past 12 months, have you had to go without electric, gas, oil or water in your home?: no 1. Within the past 12 months, we worried whether our food would run out before we got money to buy more.: Don't know/refused 2. Within the past 12 months, the food we bought just didn't last and we didn't have money to get more.: Don't know/refused Has lack of transportation kept you from medical appointments or from doing things needed for daily living?: no Has anyone in your life made you feel unsafe or unsupported?: no How hard is it for you to pay for the very basics like food, housing, medical care, and heating? Would you say it is:: Not hard at all Do you want help finding or keeping work or a job?: I do not need or want help If for any reason you need help with day-to-day activities such as bathing, preparing meals, shopping, managing finances, etc., do you get the help you need?: I don?t need any help How often do you feel lonely or isolated from those around you?: Never Do you speak a language other than Serbian at home?: No Does the patient want assistance with any of the above?: No Health Related Social Needs Health related social needs: housing instability, housed, with risk of homelessness (Z59.811) PFSH All Active Problems (Updated 08/02/25 @ 05:23 by JHONATAN BOJORQUEZ) Chronic anxiety (Chronic) Sepsis (Acute) UTI (urinary tract infection) (Acute) Marijuana smoker, continuous (Acute) Buprenorphine dependence (Acute) Chronic prescription benzodiazepine use (Acute) Hot flashes (Acute) Sudden severe onset. 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 Pets and animals: Yes Pets and animals: cat(s) Sexually active: Yes Do you think of yourself as: straight/heterosexual Current gender identity: female What is your relationship status?: living with partner How often do you talk on the phone with friends or family?: three or more times per week How often do you get together with friends or relatives?: twice per week Do you belong to any clubs or organized social groups?: no Panel score (0-1 are the most socially isolated patients): 2 What type of physical activity do you participate in: none Marely/Episcopalian: None Special marely needs: No Agree to transfusion: Yes Seatbelt use: always Helmet use: Yes Drive intox or ride w/intox 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
--- NOTE | 2025-08-02 10:58 | NUR.NOTE ---
Access chart to print the demographic sheet to fax to [facility]. Nursing Note:
[2025-08-02] MEDS: Acetaminophen 325 MG TAB 650 MG PO (21:07)
[2025-08-02] MEDS: oxyCODONE 5 MG TAB 10 MG PO (21:07)
[2025-08-02] MEDS: Normal Saline Flush 10 ML SYR IVP (21:08)
[2025-08-03 03:17] VITALS: BP 114/64; PULSE 69; RESP 16; TEMP 36.2; O2SAT 98
[2025-08-03] MEDS: Lactated Ringers 1,000 ML 125 ML IV (03:22)
[2025-08-03 06:45] LABS: HCT 33.2 % (36.0-46.0); HGB 11.0 g/dL (11.2-15.7); MCH 29.3 pg (27.0-33.0); MCHC 33.1 % (32.0-36.0); MCV 88 fL (80-95); MPV 9.5 fL (8.0-11.0); Platelet Count 361 10^3/uL (130-400); RBC 3.76 10^6/uL (3.93-5.22); RDW 13.2 % (11.7-14.6); RDW-SD 43.0 fL; WBC 7.09 10^3/uL (4.4-10.8)
[2025-08-03 07:06] LABS: ALT 18 U/L (14-59); AST 14 U/L (15-37); Albumin 2.8 g/dL (3.4-5.0); Alkaline Phosphatase 37 U/L (46-116); Anion Gap 6.7 mmol/L (3-11); BUN 3 mg/dL (7-18); Bilirubin, Total 0.5 mg/dL (0.2-1.0); CO2 27.3 mmol/L (21.0-32.0); Calcium 8.0 mg/dL (8.5-10.1); Chloride 107 mmol/L (98-107); Estimated GFR 104.00 (mL/min/1.73m2); Glucose 75 mg/dL (74-106); Magnesium 2.0 mg/dL (1.8-2.4); Potassium 3.9 mmol/L (3.5-5.1); Sodium 141 mmol/L (136-145); Total Protein 5.5 g/dL (6.4-8.2)
[2025-08-03] MEDS: Levothyroxine 50 MCG TAB PO (07:47)
[2025-08-03] MEDS: cefTRIAXone 1 GM/50 ML BAG IVPB (07:47)
[2025-08-03] MEDS: Enoxaparin 40 MG/0.4 ML SYR SC (07:47)
[2025-08-03] MEDS: Pregabalin 25 MG CAP PO (07:47)
[2025-08-03] MEDS: Normal Saline Flush 10 ML SYR IVP (07:48)
--- NOTE | 2025-08-03 08:00 | DI.US_ITS ---
Exam(s) US RENAL EXAM: US RENAL CLINICAL HISTORY: UTI with sepsis. TECHNIQUE: Dhillon scale imaging and color doppler were used. COMPARISON: CT CT ABDOMEN PELVIS W from 06/24/2025 FINDINGS: Right kidney: 9.5cm Echogenicity: Normal Hydronephrosis: No. Extrarenal pelvis. Cyst or mass: No Nephrolithiasis: No Left kidney: 10.8cm Echogenicity: Normal Hydronephrosis: No Cyst or mass: No Nephrolithiasis: No Bladder:Normal. Dense were visualized. Prevoid vol: 535 cc Postvoid vol:0 cc IMPRESSION: Negative renal ultrasound. DATA REPOSITORY:
[2025-08-03 08:16] VITALS: BP 121/84; PULSE 71; RESP 17; TEMP 36.4; O2SAT 100
[2025-08-03] MEDS: oxyCODONE 5 MG TAB 10 MG PO (09:54)
[2025-08-03] MEDS: Acetaminophen 325 MG TAB 650 MG PO (09:54)
[2025-08-03 11:08] VITALS: BP 133/84; PULSE 79; RESP 16; TEMP 36.5; O2SAT 84
[2025-08-03] MEDS: oxyCODONE 10 MG TAB PO (11:42)
--- NOTE | 2025-08-03 12:30 | W.PM.DS.N ---
Date of service: 08/03/25 Time of Service: 11:00 DS: Diagnosis Discharge Diagnosis (1) Sepsis: Status: Resolved Asessment and Plan: Jaycee Rodarte is a 50 year old woman presenting August 02 with recent diagnosis of food poisoning treated with keflex. She had nausea, vomiting, diarrhea, weakness and muscle cramps for about a week. 3 days prior to arrival, she began to have pain with urination, without positive urine culture. She was found to meet sepsis criteria on admission. She continues to have mild nausea but other symptoms have largely resolved. Her blood cultures here are negative. Urine culture preliminary result is positive for Gram positives; likely a contaminant. At this time she is safe to return home. Will defer additional antibiotics in favor of PO fluids. Sepsis resolved. (2) UTI (urinary tract infection): Status: Resolved Asessment and Plan: No UTI. Discussed antibiotics with patient who agrees defer additional treatment with questionable value. Recommend PO fluids, urination before/after intercourse/defecation (3) Hypothyroidism: Status: Chronic Asessment and Plan: Continue home regimen (4) Chronic back pain: Status: Chronic Asessment and Plan: Multiple back surgeries (5) Chronic, continuous use of opioids: Status: Chronic Asessment and Plan: Continue home regimen, buprenorphine in multiple formats (6) Chronic anxiety: Status: Chronic Asessment and Plan: Continue home regimen Discharge Plan Disposition Patient Disposition: Home Condition: Improving Discharge Details Reason For Visit: Sepsis, UTI Admit Date/Time: 08/02/25 04:11 Admit Provider: Bronson Welch Attending Provider: Bronson Welch Primary Care Provider: Janusz Harrison [facility] Hospital Course: Jaycee Rodarte is a 50 year old woman presenting August 02 with recent diagnosis of food poisoning treated with keflex. She had nausea, vomiting, diarrhea, weakness and muscle cramps for about a week. 3 days prior to arrival, she began to have pain with urination, without positive urine culture. She was found to meet sepsis criteria. She continues to have mild nausea but other symptoms have largely resolved. Her blood cultures here are negative. Urine culture preliminary result is positive for Gram positives; likely a contaminant. At this time she is safe to return home. Will defer additional antibiotics in favor of PO fluids. Home Meds and New Rx's Prescriptions: No Action levothyroxine [Synthroid] 50 mcg tablet 50 mcg PO DAILY lorazepam 1 mg tablet 1 mg PO DAILY PRN (Reason: anxiety) Qty: 28 0RF Emgality Pen 120 mg/mL pen injector 120 mg subcut QMONTH Qty: 1 5RF Restasis MultiDose 0.05 % drops 1 drp ophthalmic (eye) Q12H buprenorphine [Butrans] 20 mcg/hour patch weekly 1 patch transdermal QWEEK Qty: 4 0RF buprenorphine HCl [Belbuca] 450 mcg film 450 mcg buccal Q12H Qty: 56 0RF oxycodone 5 mg tablet 10 mg PO TID MDD 25mg PRN Rx Instructions: 5-10mg every 6 hours as needed for pain, TDD 25mg; Discharge Instructions Stand Alone Forms: Nursing Discharge Form Referrals: Janusz Harrison [Primary Care Provider, Medicine] Referral Note: PCP will call to schedule a follow up appointment, if you haven't heard from them within a couple of days please call them. Activity:: Activity as Tolerated Equipment/Supplies:: No Equipment Needed Diet:: As Tolerated Discharge Orders Discharge Orders: Discharge Order (Routine); Ordered 08/03/25 Ordered By: Aba Dickson Discharge Data Discharge Date/Time-TO BE ENTERED AT DEPARTURE: 08/03/25 14:32 DS: Summary Time Spent with Patient providing and/or coordinating discharge services: Greater than 30 minutes Status at Discharge Functional status at discharge: independent ambulation Overall status at discharge: patient is progressing back to baseline Mental Status: mental status grossly normal Speech and Movement: speech and movement normal Mood: congruent mood Affect: normal affect Quality:SDOH Health Related Social Needs: Health related social needs risk of homeless Exam Narrative Exam Narrative: General: This is a pleasant woman in emotional distress HEENT: Normocephalic, atraumatic CV: RRR Resp: CTAB Abd: soft, NTND MSK: voluntary motion x4 Neuro: awake, alert, no focal deficits Psych Mental Status: mental status grossly normal Speech and Movement: speech and movement normal Mood: congruent mood Affect: normal affect DS: Data Vitals/I&O Vitals and I&O: Vital Signs Temperature 36.5 C 08/03/25 11:08 Temperature Source Temporal Artery Scan 08/03/25 11:08 Pulse 79 08/03/25 11:08 Pulse 71 08/02/25 04:50 Respiratory Rate 16 08/03/25 11:08 Respiratory Effort Normal 08/02/25 05:31 Respiratory Depth Normal 08/02/25 05:31 Respiratory Pattern Normal 08/02/25 05:31 Blood Pressure 133/84 08/03/25 11:08 Blood Pressure Mean 100 08/03/25 11:08 Pulse Oximetry 84 L 08/03/25 11:08 Oxygen Delivery Method Room Air 08/03/25 11:08 Oxygen Flow Rate 0 08/03/25 11:08 Pain Level 2 08/03/25 08:16 Intake & Output 08/02/25 08/03/25 08/03/25 23:59 11:59 23:59 Intake Total 1010 / 2560.000 2250 / 2250 Balance 1010 / 2560.000 2250 / 2250 Weight 65.5 kg Intake: IV 1010 / 2560.000 2049 Oral 200 / 200 Other: Urine Color Yellow Urine Odor Normal Data Completed and Pending Labs on day of discharge: Labs from last 24 hours 08/03/25 06:11 WBC 7.09 RBC 3.76 L Hgb 11.0 L Hct 33.2 L MCV 88 MCH 29.3 MCHC 33.1 RDW 13.2 Plt Count 361 MPV 9.5 Sodium 141 Potassium 3.9 Chloride 107 Carbon Dioxide 27.3 Anion Gap 6.7 BUN 3 L Creatinine 0.7 Est GFR (CKD-EPI 2020) 104.00 Glucose 75 Calcium 8.0 L Magnesium 2.0 Total Bilirubin 0.5 AST 14 L ALT 18 Alkaline Phosphatase 37 L Total Protein 5.5 L Albumin 2.8 L Preliminary micro results at discharge 08/02/25 02:10 Urine - Reflex from Ua Urine Culture - Preliminary Gram positive ismael 08/02/25 02:54 Blood Blood Culture - Preliminary NO GROWTH 24 HOURS 08/02/25 02:30 Blood Blood Culture - Preliminary NO GROWTH 24 HOURS PFSH All Active Problems (Updated 08/04/25 @ 00:04 by JHONATAN BOJORQUEZ) Chronic anxiety (Chronic) Marijuana smoker, continuous (Acute) Buprenorphine dependence (Acute) Chronic prescription benzodiazepine use (Acute) Hot flashes (Acute) Sudden severe onset. 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 Pets and animals: Yes Pets and animals: cat(s) Sexually active: Yes Do you think of yourself as: straight/heterosexual Current gender identity: female What is your relationship status?: living with partner How often do you talk on the phone with friends or family?: three or more times per week How often do you get together with friends or relatives?: twice per week Do you belong to any clubs or organized social groups?: no Panel score (0-1 are the most socially isolated patients): 2 What type of physical activity do you participate in: none Marely/Muslim: None Special marely needs: No Agree to transfusion: Yes Seatbelt use: always Helmet use: Yes Drive intox or ride w/intox local combination truck 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: No Working smoke detector in home: Yes Carbon monox detector in home: Yes Firearms in home: No Do you feel safe at home: Yes Do you feel safe in your relationship?: Yes Victim of physical abuse: No Victim of emotional abuse: No Victim of sexual abuse: No Would you like helpful sources: No Time Spent with Patient Time Spent with Patient: <45 minutes Time was spent: preparing to see the patient(eg.review tests), obtaining and/or reviewing separately otained hiistory, ordering medications,tests, procedures, referring, communicating with other health companion caregiver, indepentently interpreting results, counseling the patient and care coordination
--- NOTE | 2025-08-03 12:48 | CMDISCH_ITS ---
Date of service: 08/03/25 Time of Service: 12:48 LACE Index Scoring Tool Questions: Length of Stay (in days): 1 Was the patient admitted via the E.D.?: Yes E.D. Visits: 2 Answers: Total Score: 6 Risk of Readmission: Low Risk Care Management Discharge Plan Reason for Hospitalization: Sepsis, UTI Discharge Plan: Jaycee is discharged home via private vehicle with family. She will follow up with her PCP and continue per her discharge plan of care as dir ected. No new services are indicated at the time of discharge. Patient/Family Education Needs: Review discharge instructions, and plan to follow up after discharge. Discuss ask me three. SDOH Health Related Social Needs: Health related social needs risk of homeless
== END 2025-08-03 14:32 | disposition home or self-care (01) | DRG 871 ==
LOC: ER 04:16 → MS 05:23
PROVIDERS: Admitting Provider Family Medicine; Emergency Provider Emergency Medicine; PCP Neuromusculoskeletal Medicine & OMM; Responsible Provider Family Medicine; Visit Provider Family Medicine
DX: A41.9 Sepsis, unspecified organism (principal); G03.9 Meningitis, unspecified; Z59.811 Housing instability, housed, with risk of homelessness; G89.29 Other chronic pain; F41.9 Anxiety disorder, unspecified; R11.0 Nausea; Z79.891 Long term (current) use of opiate analgesic; F12.90 Cannabis use, unspecified, uncomplicated; N39.46 Mixed incontinence; M35.00 Sjogren syndrome, unspecified; E03.9 Hypothyroidism, unspecified; G43.909 Migraine, unspecified, not intractable, without status migrainosus; Z98.1 Arthrodesis status; Z96.82 Presence of neurostimulator; R25.2 Cramp and spasm; M54.50 Low back pain, unspecified; H04.123 Dry eye syndrome of bilateral lacrimal glands
CPT/HCPCS: 00123; 36415; 76770; 80053; 80307; 82805; 83690; 85027; 87040; 87637; 93005; 96361; 96365; 96375; 99291; J1650; 81003; 81015; 83605; 83735; 84443; 85025; 87086; 93010; 99223; 99238; J0696; J0780